=== PATIENT | female | born 1955 | race Caucasian/White ===

== ENCOUNTER 2021-12-17 16:07 | Inpatient (IN) | payer BC, MEDICAID ==
[~2021-12-17] VITALS: Ht 152.4 cm; Wt 68.0 kg
[2021-12-17 19:51] LABS: BASOPHILS % 0.2 % (0.0-2.0); EOSINOPHILS % 0.5 % (0.0-5.0); HEMATOCRIT. 33.9 % (36.0-48.0); HEMOGLOBIN. 10.9 g/dL (12.0-16.0); LYMPHOCYTES % 17.1 % (20.0-50.0); MEAN CORPUSCULAR HEMOGLOBIN 25.9 pg (28.0-32.0); MEAN PLATELET VOLUME 8.4 fl (7.4-10.4); MONOCYTES % 4.2 % (2.0-8.0); PLATELET 291 x1000/uL (130-400); RED BLOOD CELL COUNT 4.23 mill/uL (4.2-5.4); RED CELL DISTRIBUTION WIDTH 16.6 % (11.6-14.6)
[2021-12-17 19:59] LABS: CHLORIDE 106 mEq/L (98-107)
[2021-12-17] MEDS ORDERED: LEVETIRACETAM 1,500 MG in SODIUM CHLORIDE 0.9% 100 ML IV NR (23:30)
[2021-12-18 01:40] VITALS: BP 113/54
[2021-12-18] MEDS ORDERED: DEXTROSE 50% WATER 50ML SYRINGE IV PRN (02:30)
[2021-12-18 04:00] VITALS: BP 111/51
[2021-12-18] MEDS: INSULIN LISPRO 100 UNITS/ML SUBCUT SCH ×4 (06:06→20:45)
[2021-12-18] MEDS: BLOOD SUGAR DIAGNOSTIC STRIP TEST SCH ×4 (06:06→20:45)
[2021-12-18] MEDS ORDERED: SITA100T11 PO (07:03)
[2021-12-18] MEDS ORDERED: OMEP20CA14 PO (07:06)
[2021-12-18] MEDS ORDERED: OMEP10CA5 MT (07:06)
[2021-12-18] MEDS ORDERED: GLIP5TAB12 MT (07:06)
[2021-12-18] MEDS ORDERED: BENA5TAB40 MT (07:06)
[2021-12-18 08:00] VITALS: BP 113/57
[2021-12-18] MEDS ORDERED: LEVETIRACETAM 100MG/ML ORAL SYR PO ONE (09:00)
[2021-12-18] MEDS: LEVETIRACETAM 500MG TABLET PO SCH ×2 (09:41→20:42)
[2021-12-18 12:00] VITALS: BP 115/60
[2021-12-18 16:00] VITALS: BP 108/62
[2021-12-18 20:00] VITALS: BP 98/52
[2021-12-19 00:05] VITALS: BP 113/56
[2021-12-19 04:00] VITALS: BP 108/58
[2021-12-19] MEDS: BLOOD SUGAR DIAGNOSTIC STRIP TEST SCH ×4 (05:39→21:00)
[2021-12-19] MEDS: INSULIN LISPRO 100 UNITS/ML SUBCUT SCH ×4 (05:39→21:00)
[2021-12-19 08:00] VITALS: BP 111/60
[2021-12-19] MEDS: LEVETIRACETAM 500MG TABLET PO SCH ×2 (08:24→21:24)
[2021-12-19 12:00] VITALS: BP 121/53
[2021-12-19 16:00] VITALS: BP 115/58
[2021-12-19 20:00] VITALS: BP 112/47
[2021-12-20] VITALS: BP 116/53
[2021-12-20 03:58] VITALS: BP 104/47
[2021-12-20] MEDS: INSULIN LISPRO 100 UNITS/ML SUBCUT SCH ×2 (05:33→13:10)
[2021-12-20] MEDS: BLOOD SUGAR DIAGNOSTIC STRIP TEST SCH ×2 (05:33→12:40)
[2021-12-20 08:00] VITALS: BP 111/55
[2021-12-20] MEDS: LEVETIRACETAM 500MG TABLET PO SCH (08:44)
[2021-12-20 12:00] VITALS: BP 114/60
[2021-12-20] MEDS ORDERED: KEPP500 PO (13:57)
[2021-12-20 14:08] VITALS: BP 110/60
== END 2021-12-20 16:35 | disposition home or self-care (01) | DRG 639 ==
LOC: ER 16:07 → MICUSO 23:30 → 7WST 12-18 01:44
PROVIDERS: ADMIT Internal Medicine; ATTEND Internal Medicine
PROC: 4A00X4Z Measurement of Central Nervous Electrical Activity, External Approach (ICD-10-PCS; principal; 2021-12-19)
DX: E11.649 Type 2 diabetes mellitus with hypoglycemia without coma (principal); R56.9 Unspecified convulsions; I10 Essential (primary) hypertension; E78.5 Hyperlipidemia, unspecified; R51.9 Headache, unspecified
CPT/HCPCS: 36415; 70551; 70552; 80053; 82962; 83036; 85025; 93005; 95816; 99285; J1953; J7050